=== PATIENT | male | born 1980 | race American Indian/Alaskan Native ===

== ENCOUNTER 2020-07-13 18:14 | Emergency (ER) | payer SELFPAY ==
--- NOTE | 2020-07-13 18:47 | Emergency Department Report ---
Blank Doc - Documentation Documentation: 39-year-old male that presents with loss of taste, cough, loss of smell, body aches. This initial assessment/diagnostic orders/clinical plan/treatment(s) is/are subject to change based on patient's health status, clinical progression and re- assessment by fellow clinical providers in the ED. Further treatment and workup at subsequent clinical providers discretion. Patient/guardians urged not to elope from the ED as their condition may be serious if not clinically assessed and managed. Initial orders include: 1- Patient sent to [facility] for further evaluation and treatment 2- CXR
[2020-07-13] MEDS ORDERED: ACETAMINOPHEN 325 MG TAB PO ONE (18:53)
[2020-07-13 19:15] LABS: Hematocrit 41.8 % (35.5-45.6); Hemoglobin 14.3 gm/dl (11.8-15.2); Mean Corpuscular HGB Conc 34 % (32-34); Mean Corpuscular Volume 90 fl (84-94); Platelet Count 146 K/mm3 (140-440); Red Blood Count 4.66 M/mm3 (3.65-5.03); Red Cell Distribution Width 12.5 % (13.2-15.2)
[2020-07-13 19:34] LABS: Alanine Aminotransferase 10 units/L (7-56); Albumin 4.1 g/dL (3.9-5); BUN/Creatinine Ratio 13; Blood Urea Nitrogen 14 mg/dL (9-20); Calcium 8.7 mg/dL (8.4-10.2); Hemolysis Index 10
--- NOTE | 2020-07-13 19:39 | XRay Report ---
Chest 2 views INDICATION: Cough IMPRESSION: Linear opacity projects over the left lower lung. The right lung is clear. No pneumothora x or pleural effusion. Signer Name: Jimenez Guidry MD Signed: 07/13/2020 7:35 PM Workstation Name: [id number]
[2020-07-13 20:10] LABS: Basophils % (Manual) 0 % (0.0-1.8); Eosinophils % (Manual) 0 % (0.0-4.3); Total Cells Counted 100
[2020-07-13 20:11] LABS: Platelet Estimate Consistent w Auto
--- NOTE | 2020-07-14 03:25 | Emergency Department Report ---
- General Chief Complaint: Upper Respiratory Infection Stated Complaint: NO SMELL/TASTE/NAUSEA/VOMITING PUI?: Yes Time Seen by Provider: 07/14/20 03:10 Source: patient Mode of arrival: Ambulatory Limitations: No Limitations - History of Present Illness Initial Comments: Patient is a 39-year-old male that presents emergency room with complaints of headache, fever, nausea, vomiting, no taste or smell. Patient states his symptoms started 9 days ago. Patient states his symptoms are worsening. Patient denies shortness of breath. Patient denies chest pain. Patient denies diarrhea. Patient states he had a COVID test 4 days ago but is still waiting on the results. 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 MD Complaint: fever, cough, rhinorrhea -: Sudden Severity: severe Consistency: constant Improves With: NSAID, rest Worsens With: activity Associated Symptoms: fever, chills, headache, rhinorrhea, cough, nausea, vomiting. denies: myalgias, nasal congestion, sore throat, stiff neck, chest pain, shortness of breath, abdominal pain, diarrhea, rash, confusion, right sweats, weight loss, epistaxis, hoarseness, ear pain Treatments Prior to Arrival: Acetaminophen, Ibuprofen - Related Data Previous Rx's Medication Instructions Recorded Last Taken Type Azithromycin [Zithromax TAB] 500 mg PO QDAY 5 Days #5 tablet 07/14/20 Unknown Rx Dexamethasone [Taperdex] 1.5 mg PO DAILY 7 Days #1 tab.ds.pk 07/14/20 Unknown Rx Ondansetron [Zofran Odt] 4 mg PO Q6HR PRN #25 tab.rapdis 07/14/20 Unknown Rx Allergies Allergy/AdvReac Type Severity Reaction Status Date / Time No Known Allergies Allergy Verified 07/14/20 03:12 ED Review of Systems ROS: Stated complaint: NO SMELL/TASTE/NAUSEA/VOMITING Other details as noted in HPI Constitutional: chills, fever, malaise Eyes: denies: eye pain, eye discharge, vision change ENT: denies: ear pain, throat pain Respiratory: denies: cough, shortness of breath, wheezing Cardiovascular: denies: chest pain, palpitations Endocrine: no symptoms reported Gastrointestinal: nausea, vomiting. denies: abdominal pain, diarrhea Genitourinary: denies: urgency, dysuria Musculoskeletal: denies: back pain, joint swelling, arthralgia Skin: denies: rash, lesions Neurological: headache. denies: weakness, paresthesias Psychiatric: denies: anxiety, depression Hematological/Lymphatic: denies: easy bleeding, easy bruising ED Past Medical Hx - Past Medical History Previous Medical History?: No - Surgical History Past Surgical History?: No - Family History Family history: no significant - Social History Smoking Status: Never Smoker Substance Use Type: None - Medications Home Medications: Home Medications Medication Instructions Recorded Confirmed Last Taken Type Azithromycin [Zithromax TAB] 500 mg PO QDAY 5 Days #5 tablet 07/14/20 Unknown Rx Dexamethasone [Taperdex] 1.5 mg PO DAILY 7 Days #1 tab.ds.pk 07/14/20 Unknown Rx Ondansetron [Zofran Odt] 4 mg PO Q6HR PRN #25 tab.rapdis 07/14/20 Unknown Rx ED Physical Exam - General Limitations: No Limitations General appearance: alert, in no apparent distress - Head Head exam: Present: atraumatic, normocephalic - Eye Eye exam: Present: normal appearance - ENT ENT exam: Present: mucous membranes moist - Neck Neck exam: Present: normal inspection - Respiratory Respiratory exam: Present: normal lung sounds bilaterally. Absent: respiratory distress, wheezes, chest wall tenderness, accessory muscle use, decreased breath sounds - Cardiovascular Cardiovascular Exam: Present: regular rate, normal rhythm. Absent: systolic murmur, diastolic murmur, rubs, gallop - GI/Abdominal GI/Abdominal exam: Present: soft, normal bowel sounds. Absent: distended, tenderness, guarding - Rectal Rectal exam: Present: deferred - Extremities Exam Extremities exam: Present: normal inspection - Back Exam Back exam: Present: normal inspection - Neurological Exam Neurological exam: Present: alert, oriented X3 - Psychiatric Psychiatric exam: Present: normal affect, normal mood - Skin Skin exam: Present: warm, dry, intact, normal color. Absent: rash ED Course Vital Signs 07/13/20 18:49 Temperature 101.2 F H Pulse Rate 113 H Respiratory 20 Rate Blood Pressure 110/71 O2 Sat by Pulse 95 Oximetry - Reevaluation(s) Reevaluation #1: Patient ambulated with nurse. Patient's oxygen saturation maintained at 96%. Patient had no hypoxia while in the ER. Patient did not have hypoxia with ambulation. I discussed all results and clinical findings with patient. I discussed plan of care with patient. Patient agrees with plan of care. Patient is stable for discharge. Patient will be discharged home. Patient given discharge instructions. Patient voiced understanding of discharge instructions. Patient will need to self quarantine for 14 days. 07/14/20 03:35 ED Medical Decision Making - Lab Data Result diagrams: 07/13/20 19:02 07/13/20 19:02 - Radiology Data Radiology results: report reviewed, image reviewed interpreted by me: Chest x-ray: No pneumonia, no pneumothorax, no foreign body, no osseous findings, no acute findings Chest 2 views INDICATION: Cough IMPRESSION: Linear opacity projects over the left lower lung. The right lung is clear. No pneumothorax or pleural effusion. - Medical Decision Making Patient is a 39-year-old male who presents emergency room with complaints of cough, nausea vomiting, loss of smell and taste. Patient's clinical findings are consistent with an upper respiratory infection and COVID-19. Patient had patient's labs are essentially unremarkable. Patient's chest x-ray is negative. Patient's oxygen saturations stayed stable entire time in the ER. Patient ambulated saturation remained at 96%. Patient is stable for discharge. Patient was discharged home. - Differential Diagnosis COVID, URI, fever, cough, nausea, vomiting Critical care attestation.: If time is entered above; I have spent that time in minutes in the direct care of this critically ill patient, excluding procedure time. ED Disposition Clinical Impression: Person under investigation for COVID-19, COVID-19, Cough Fever Qualifiers: Fever type: unspecified Qualified Code(s): R50.9 - Fever, unspecified Upper respiratory infection Qualifiers: URI type: unspecified URI Qualified Code(s): J06.9 - Acute upper respiratory infection, unspecified Nausea and vomiting Qualifiers: Vomiting type: unspecified Vomiting Intractability: non-intractable Qualified Code(s): R11.2 - Nausea with vomiting, unspecified Disposition: DC-01 TO HOME OR SELFCARE Is pt being admited?: No Does the pt Need Aspirin: No Condition: Stable Instructions: COVID-19, Upper Respiratory Infection (ED), Viral Syndrome (ED), Cold Symptoms (ED) Additional Instructions: Patient to follow-up with primary care in 2 to 3 days. Patient to follow-up with [facility] in 2 to 3 days. Patient to self quarantine for 14 days. Patient to do a COVID test. Patient to avoid ibuprofen. PAtient to rest. Patient to increase water.. Patient to take T ylenol as needed for pain. Patient to take meds as directed. Patient to return to the ER if condition worsens, changes or new symptoms arise. Prescriptions: Dexamethasone [Taperdex] 1.5 mg PO DAILY 7 Days #1 tab.ds.pk Azithromycin [Zithromax TAB] 500 mg PO QDAY 5 Days #5 tablet Ondansetron [Zofran Odt] 4 mg PO Q6HR PRN #25 tab.rapdis PRN Reason: Nausea And Vomiting Referrals: PRIMARY CARE, [Primary Care Provider] - 2-3 Days Time of Disposition: 03:39
[2020-07-14 05:50] VITALS: BP 119/89
== END 2020-07-14 04:40 | disposition home or self-care (01) ==
LOC: ED 18:14
DX: U07.1 COVID-19 (principal); J06.9 Acute upper respiratory infection, unspecified; Z79.899 Other long term (current) drug therapy
CPT/HCPCS: 36415; 71046; 80053; 82140; 85007; 85025; 99283